=== PATIENT | female | born 1990 | race African-American/Black ===

== ENCOUNTER 2018-01-31 21:22 | Emergency (ER) | payer MEDICAID, OTHER ==
[~2018-01-31] VITALS: Ht 154.9 cm; Wt 52.0 kg
[2018-01-31] MEDS ORDERED: TETRACAINE 0.5% OPHTH DROPS 4ML LEFTEYE ONE (22:45)
[2018-01-31] MEDS ORDERED: FLUORESCEIN SODIUM 1MG/STRIP LEFTEYE ONE (22:45)
[2018-01-31 23:12] VITALS: BP 112/65
== END 2018-01-31 23:12 | disposition home or self-care (01) ==
LOC: ER 21:22
DX: S05.01XA Injury of conjunctiva and corneal abrasion without foreign body, right eye, initial encounter (principal); Z88.0 Allergy status to penicillin; X58.XXXA Exposure to other specified factors, initial encounter; Y93.89 Activity, other specified; Y92.89 Other specified places as the place of occurrence of the external cause; Y99.8 Other external cause status
CPT/HCPCS: 99283